=== PATIENT | male | born 1955 | race Caucasian/White ===

== ENCOUNTER → 2017-12-08 | Outpatient (CLI) | payer OTHER ==
--- NOTE | 2017-12-08 14:00 | KCIC ---
MR of the right shoulder Indication: Chronic right shoulder pain. Fell one year ago with shoulder injury. Technique: Standard multiplanar sequences are obtained. Findings: Artifact: Moderate motion degradation. Acromioclavicular joint: Moderate undersurface degenerative osteophytes. Rotator cuff: * Supraspinatus-infraspinatus tendon: Full-thickness tear of the supraspinatus and infraspinatus tendon, poorly delineated due to the lack of an effusion, without retraction measures up to 3 cm. * Subscapularis tendon: Tendinosis with mild partial tearing. * Muscle bulk: Mild atrophy * Subacromial subdeltoid bursa: Trace effusion. Fluid: Trace glenohumeral effusion. Glenohumeral cartilage: Mild degenerative change. Labrum: No clear-cut detachment Biceps tendon: Intact Bones: No lesion or acute fracture. Soft tissue: No acute findings. Impression: 1. Full-thickness rotator cuff tear of the supraspinatus and infraspinatus tendon with retraction. Partial subscapularis tendon tear. 2. 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 Electronically signed by: Jesus Combs MD (12/08/2017 1:57 PM) [id number]
== END | disposition home or self-care (01) ==
LOC: KCIC MRI 12:13
PROVIDERS: ATTEND Nurse Practitioner Family
DX: S46.011D Strain of muscle(s) and tendon(s) of the rotator cuff of right shoulder, subsequent encounter (principal); M19.011 Primary osteoarthritis, right shoulder; G89.29 Other chronic pain; W19.XXXD Unspecified fall, subsequent encounter
CPT/HCPCS: 73221

== ENCOUNTER → 2019-04-10 | Outpatient (CLI) | payer OTHER ==
--- NOTE | 2019-04-10 16:12 | KCIC ---
EXAM: CT Maxillofacial with IV contrast INDICATION: Chronic maxillary sinusitis. History of previous sinus surgery. Known sinus cyst. TECHNIQUE: Multi-detector row CT images were obtained through the maxillofacial region with the use of IV contrast. Post-processing reconstructed images were obtained for interpretation. All CT scans performed at this facility utilize dose optimization techniques as appropriate to the exam, including the following: Automated exposure control and adjustment of the mA and/or KV according to patient size (this includes techniques or standardized protocols for targeted exams where dose is indication/reason for exam). IV CONTRAST: Administered COMPARISON: None FINDINGS: OSSEOUS: No evidence of fracture or bone destruction. VISUALIZED INTRACRANIAL STRUCTURES: Unremarkable. ORBITS: Orbital contents are unremarkable.. SINUSES: A left maxillary antral mucous retention cyst or polyp measuring 1.1 cm is present. Otherwise the visualized paranasal sinuses and mastoid air cells are clear. SOFT TISSUES: Unremarkable. IMPRESSION: Minimal left maxillary sinus mucosal disease with a 1 cm polyp noted in the left maxillary antrum. No findings for acute or chronic paranasal sinusitis. Electronically signed by: Tere Burt MD (04/10/2019 4:09 PM) [id number]
== END | disposition home or self-care (01) ==
LOC: KCIC CT 11:20
PROVIDERS: ATTEND Family Medicine
DX: J33.8 Other polyp of sinus (principal); J32.0 Chronic maxillary sinusitis
CPT/HCPCS: 70486

== ENCOUNTER → 2019-10-03 | Outpatient (CLI) | payer OTHER ==
--- NOTE | 2019-10-04 14:40 | SLEEP ---
DATE OF STUDY: 10/03/2019 HOME SLEEP STUDY REFERRING PHYSICIAN: Jayson Lamar MD The patient is a 63-year-old who weighs 261 pounds with a BMI of 39.7. The patient's [place] score was 7. The patient underwent home sleep study performed at [facility]. Total recording time was 439 minutes. During the night study, the patient had 302 obstructive apneas, no central apneas, 53 mixed apneas and 48 hypopneas. The patient's AHI was 58.7 per hour. Nocturnal oximetry study revealed an average oxygen saturation of 92% with the lowest of 78%. ____ minutes were spent in oxygen saturation less than 90% and 14 minutes with saturation less than 85%. Mean heart rate was 62 beats per minute with a maximum 97 beats per minute. IMPRESSION: 1. Severe obstructive sleep apnea at an AHI of 58 per hour. 2. Nocturnal hypoxia secondary to obstructive sleep apnea. RECOMMENDATIONS: 1. The patient would benefit from in-lab CPAP titration study. Alternate treatment option would include home auto-titration study. 2. Once the patient is optimally treated with CPAP, then follow up in 4-6 weeks to assess compliance and to document clinical improvement. 3. Weight loss is strongly advised. 4. Avoid [employer] depressants. 5. Cautioned regarding driving until symptoms of sleep apnea resolve with the use of CPAP. ROSARIO BRITO MD DR: JOSIE/shannan JOB#: [id number] / [id number] [facility] JAYSON LAMAR MD
== END | disposition home or self-care (01) ==
LOC: RT 08:55
PROVIDERS: ATTEND Family Medicine
DX: G47.33 Obstructive sleep apnea (adult) (pediatric) (principal); G47.34 Idiopathic sleep related nonobstructive alveolar hypoventilation; R53.83 Other fatigue
CPT/HCPCS: G0399

== ENCOUNTER → 2019-10-11 | Outpatient (CLI) | payer OTHER ==
--- NOTE | 2019-10-11 08:21 | RAD ---
INDICATION: Elevated liver function tests COMPARISON: None. TECHNIQUE: Grayscale and color ultrasound images obtained through the abdomen. FINDINGS: Aorta/IVC: Limited visualization secondary to bowel gas Pancreas: Largely obscured by bowel gas. Liver: Borderline echogenic Gallbladder: Removed Common Bile Duct: Not dilated. Right Kidney: No hydronephrosis. IMPRESSION: * No right-sided hydronephrosis * Common bile duct is not dilated. * A definite hepatic mass is not seen within the limits of ultrasound. The liver is borderline echogenic. Mild fatty infiltration not excluded. Electronically signed by: Jason Tavares MD (10/11/2019 8:18 AM) [id number]
== END | disposition home or self-care (01) ==
LOC: US 06:24
PROVIDERS: ATTEND Family Medicine
DX: R94.5 Abnormal results of liver function studies (principal)
CPT/HCPCS: 76705